=== PATIENT | female | born 1940 | race Caucasian/White ===

== ENCOUNTER 2019-04-15 12:19 | Emergency (ER) | payer MEDICARE, OTHER ==
[~2019-04-15] VITALS: Ht 157.5 cm; Wt 74.0 kg
[~2019-04-15 12:19] MED LIST: ALPR-624 PO; ASPI-1009 PO; CITA10TA9; DICY10CA88 PO; PROM25TA14 PO; SULF-117 PO; TRAM50TA2 PO; ZOF4T PO
[2019-04-15 13:05] LABS: BASOPHILS % (AUTO) 0.8 % (0-1); EOSINOPHILS % (AUTO) 0.4 % (0-6); HEMATOCRIT 36.3 % (35.0-45.0); HEMOGLOBIN 12.1 g/dl (12.0-16.0); LYMPHOCYTES # (AUTO) 0.9 X10'3 (1.1-4.8); LYMPHOCYTES % (AUTO) 17.7 % (21-51); MEAN CORPUSCULAR HEMOGLOBIN 29.3 PG (27.0-31.0); MEAN CORPUSCULAR HGB CONC 33.3 g/dL (33.0-36.5); MEAN CORPUSCULAR VOLUME 87.9 FL (78-98); MEAN PLATELET VOLUME 7.2 FL (7.4-10.4); MONOCYTES # (AUTO) 0.2 X10'3 (0-0.9); MONOCYTES % (AUTO) 4.5 % (2-12); NEUTROPHILS # (AUTO) 3.7 X10'3 (1.8-7.7); NEUTROPHILS % (AUTO) 76.6 % (42-75); PLATELET COUNT 258 X10'3 (140-440); RED BLOOD COUNT 4.13 X10'6 (4.20-5.60); RED CELL DISTRIBUTION WIDTH 14.4 % (11.5-14.5); WHITE BLOOD COUNT 4.8 X10'3 (4.5-11.0)
[2019-04-15 13:16] LABS: PARTIAL THROMBOPLASTIN TIME 26 SECONDS (22-32)
[2019-04-15 13:29] LABS: ALANINE AMINOTRANSFERASE 17 U/L (12-78); ALBUMIN 3.8 G/DL (3.4-5.0); ALBUMIN/GLOBULIN RATIO 1.1 (1.1-1.5); ALKALINE PHOSPHATASE 93 IU/L (46-116); ANION GAP 10 (8-16); ASPARTATE AMINO TRANSFERASE 16 U/L (10-37); BILIRUBIN,TOTAL 0.6 MG/DL (0.1-1.0); BLOOD UREA NITROGEN 9 MG/DL (7-18); BUN/CREATININE RATIO 9.3 (6.6-38.0); CALCIUM 8.6 MG/DL (8.5-10.1); CHLORIDE 109 MMOL/L (99-107); CREATININE 0.97 MG/DL (0.40-0.90); GLUCOSE 118 MG/DL (70-104); LACTATE DEHYDROGENASE 172 U/L (81-234); MAGNESIUM 1.7 MG/DL (1.5-2.4); POTASSIUM 3.5 MMOL/L (3.5-5.1); SODIUM 143 MMOL/L (135-145); TOTAL CARBON DIOXIDE 23.7 MMOL/L (24-32); TOTAL PROTEIN 7.2 G/DL (6.4-8.2); eGFR 55 ML/MIN
[2019-04-15 13:30] LABS: C-REACTIVE PROTEIN < 0.05 MG/DL (0.0-0.5)
[2019-04-15] MEDS ORDERED: BENZ-16 PO (13:39)
[2019-04-15] MEDS ORDERED: AZIT-63 PO (13:39)
[2019-04-15 13:49] VITALS: BP 152/78
--- NOTE | 2019-04-15 13:49 | NUR ---
CONFIRMED WITH DR PATTERSON PT CAN BE DISCHARGE NO NEED TO OBTAIN FLU SWAB.
--- NOTE | 2019-04-15 13:52 | NUR ---
CALLED [phone] LEFT MESSAGE FOR PT TO BE TRANSPORTED HOME
== END 2019-04-15 13:56 | disposition home or self-care (01) ==
LOC: ER 12:20
DX: J21.9 Acute bronchiolitis, unspecified (principal); Z98.890 Other specified postprocedural states; Z88.5 Allergy status to narcotic agent; Z79.82 Long term (current) use of aspirin; Z79.2 Long term (current) use of antibiotics; Z79.899 Other long term (current) drug therapy
CPT/HCPCS: 36415; 71045; 80053; 83605; 83615; 83735; 84145; 85025; 85610; 85730; 86140; 87040; 93005; 99285

== ENCOUNTER 2019-06-29 15:18 | Inpatient (IN) | payer MEDICARE, OTHER ==
[~2019-06-29] VITALS: Ht 154.9 cm; Wt 72.0 kg
--- NOTE | 2019-06-29 15:46 | NUR ---
Stroke alert level [address] Marinelli.
--- NOTE | 2019-06-29 16:21 | NUR ---
patient back from ct.
[2019-06-29 16:26] LABS: CLARITY,URINE CLEAR (Clear); COLOR,URINE YELLOW (Yellow); GLUCOSE, URINE NEGATIVE (Neg); KETONES,URINE NEGATIVE (Neg); LEUKOCYTE ESTERASE ,URINE NEGATIVE (Neg); NITRITES, URINE NEGATIVE (Neg); OCCULT BLOOD,URINE NEGATIVE (Neg); PROTEIN,URINE NEGATIVE (Neg); UROBILINOGEN,URINE 0.2 E.U/dL (0.2-1.0)
[2019-06-29 16:27] LABS: BASOPHILS # (AUTO) 0.1 X10'3 (0-0.2); EOSINOPHILS % (AUTO) 2.2 % (0-6); LYMPHOCYTES # (AUTO) 1.2 X10'3 (1.1-4.8); MEAN PLATELET VOLUME 6.9 FL (7.4-10.4)
[2019-06-29 16:27] LABS: UA COLLECTION TYPE STRAIGHT CATH
[2019-06-29 16:29] LABS: BASOPHILS % (AUTO) 1.4 % (0-1); EOSINOPHILS # (AUTO) 0.1 X10'3 (0-0.9); HEMATOCRIT 37.9 % (35.0-45.0); HEMOGLOBIN 12.5 g/dl (12.0-16.0); LYMPHOCYTES % (AUTO) 17.6 % (21-51); MEAN CORPUSCULAR VOLUME 87.8 FL (78-98); MONOCYTES # (AUTO) 0.4 X10'3 (0-0.9); MONOCYTES % (AUTO) 6.2 % (2-12); NEUTROPHILS # (AUTO) 4.9 X10'3 (1.8-7.7); NEUTROPHILS % (AUTO) 72.6 % (42-75); PLATELET COUNT 325 X10'3 (140-440); RED BLOOD COUNT 4.32 X10'6 (4.20-5.60); RED CELL DISTRIBUTION WIDTH 15.1 % (11.5-14.5); WHITE BLOOD COUNT 6.7 X10'3 (4.5-11.0)
[2019-06-29 16:33] LABS: PARTIAL THROMBOPLASTIN TIME 25 SECONDS (22-32)
[2019-06-29 16:34] LABS: ALANINE AMINOTRANSFERASE 15 U/L (12-78); ALBUMIN 3.7 G/DL (3.4-5.0); ALBUMIN/GLOBULIN RATIO 1.1 (1.1-1.5); ALKALINE PHOSPHATASE 102 IU/L (46-116); ANION GAP 11 (8-16); ASPARTATE AMINO TRANSFERASE 16 U/L (10-37); BILIRUBIN,TOTAL 0.7 MG/DL (0.1-1.0); BLOOD UREA NITROGEN 15 MG/DL (7-18); BUN/CREATININE RATIO 14.3 (6.6-38.0); CALCIUM 9.1 MG/DL (8.5-10.1); CHLORIDE 107 MMOL/L (99-107); CREATININE 1.05 MG/DL (0.40-0.90); GLUCOSE 93 MG/DL (70-104); POTASSIUM 3.7 MMOL/L (3.5-5.1); SODIUM 145 MMOL/L (135-145); TOTAL CARBON DIOXIDE 26.8 MMOL/L (24-32); TOTAL PROTEIN 7.2 G/DL (6.4-8.2); eGFR 50 ML/MIN
--- NOTE | 2019-06-29 16:38 | NUR ---
Called tele Neuro/spoke with Salvatore.
--- NOTE | 2019-06-29 16:43 | NUR ---
Awaiting tele neuro consult,monitor at bedside.
[2019-06-29] MEDS ORDERED: potassium Cl 20 mEq SR tablet PO PRN (17:15)
[2019-06-29] MEDS ORDERED: potassium CL 10mEq/100ml bag 100 ML IV PRN ×2 (17:15)
[2019-06-29] MEDS ORDERED: acetaminophen 325mg tablet PO PRN ×2 (17:15)
[2019-06-29] MEDS ORDERED: magnesium Cl slow-release 64mg tablet PO PRN (17:15)
[2019-06-29] MEDS ORDERED: magnesium 2GM in 50ml NS 50 ML IV PRN (17:15)
[2019-06-29] MEDS ORDERED: ondansetron/PF 4mg/2ml inj IV PRN (17:15)
[2019-06-29] MEDS ORDERED: magnesium 4gm in 100ml NS 100 ML IV PRN (17:15)
--- NOTE | 2019-06-29 17:29 | NUR ---
DR RUST AT BEDSIDE
--- NOTE | 2019-06-29 17:53 | NUR ---
Unable to do swallow eval,patient to MRI.
[2019-06-29 18:00] VITALS: BP 154/75
--- NOTE | 2019-06-29 18:39 | NUR ---
Pt returned to room after MRI.
[2019-06-29] MEDS: normal saline 1000ml 1,000 ML IV SCH (18:55)
[2019-06-29 19:15] VITALS: BP 154/75
--- NOTE | 2019-06-29 19:30 | NUR ---
received report from JAVIER Lujan in ER. Patient brought to room via gurney and she was able to ambulate to the bed. Patient stated that she no longer had any more numbness or tingling in her arm, that all symptoms were resolved. patient given POC, call light and VS taken.
[2019-06-29] MEDS: K and/or MAG REPLACEMENT MC SCH (20:00)
[2019-06-29] MEDS: docusate sod 100mg capsule PO SCH (20:00)
[2019-06-29] MEDS ORDERED: ATOR20TA PO (20:56)
[2019-06-29] MEDS ORDERED: ESCI20TA PO (20:56)
[2019-06-29] MEDS ORDERED: IBUP-1984 PO (20:56)
[2019-06-29] MEDS ORDERED: RABE20TA18 PO (20:56)
[2019-06-29] MEDS ORDERED: AMLO5TAB PO (20:56)
[2019-06-29] MEDS ORDERED: temazepam 15mg capsule PO PRN (21:00)
[2019-06-29] MEDS: clopidogrel 75mg tablet PO SCH (21:25)
[2019-06-29] MEDS: ALPRAZolam 0.25mg tablet PO PRN (21:26)
[2019-06-29] MEDS: heparin, porcine 5000 units/ml vial SQ SCH (21:26)
[2019-06-30] VITALS: BP 116/56
--- NOTE | 2019-06-30 00:06 | NUR ---
reviewed and agree with SRN assessment
[2019-06-30 04:00] VITALS: BP 125/57
--- NOTE | 2019-06-30 05:58 | NUR ---
Problems reprioritized. Patient report given, questions answered & plan of care reviewed with Ruby HERRERA .
[2019-06-30 06:02] LABS: BASOPHILS # (AUTO) 0.1 X10'3 (0-0.2); BASOPHILS % (AUTO) 1.3 % (0-1); EOSINOPHILS # (AUTO) 0.2 X10'3 (0-0.9); HEMATOCRIT 31.5 % (35.0-45.0); HEMOGLOBIN 10.5 g/dl (12.0-16.0); LYMPHOCYTES # (AUTO) 1.3 X10'3 (1.1-4.8); LYMPHOCYTES % (AUTO) 22.1 % (21-51); MEAN CORPUSCULAR HEMOGLOBIN 28.8 PG (27.0-31.0); MEAN CORPUSCULAR HGB CONC 33.2 g/dL (33.0-36.5); MEAN CORPUSCULAR VOLUME 86.7 FL (78-98); MEAN PLATELET VOLUME 7.1 FL (7.4-10.4); MONOCYTES # (AUTO) 0.5 X10'3 (0-0.9); MONOCYTES % (AUTO) 8.9 % (2-12); NEUTROPHILS # (AUTO) 3.7 X10'3 (1.8-7.7); NEUTROPHILS % (AUTO) 63.7 % (42-75); PLATELET COUNT 269 X10'3 (140-440); RED BLOOD COUNT 3.63 X10'6 (4.20-5.60); RED CELL DISTRIBUTION WIDTH 14.9 % (11.5-14.5); WHITE BLOOD COUNT 5.8 X10'3 (4.5-11.0)
--- NOTE | 2019-06-30 06:04 | NUR ---
RECEIVED REPORT FROM JAVIER JAY
--- NOTE | 2019-06-30 06:05 | NUR ---
Patient in room [facility]. I have received report from MISTY HERRERA and had the opportunity to ask questions and assume patient care.
[2019-06-30 06:10] LABS: ALANINE AMINOTRANSFERASE 11 U/L (12-78); ALBUMIN 3.1 G/DL (3.4-5.0); ALKALINE PHOSPHATASE 84 IU/L (46-116); ANION GAP 6 (8-16); ASPARTATE AMINO TRANSFERASE 15 U/L (10-37); BILIRUBIN,TOTAL 0.7 MG/DL (0.1-1.0); BLOOD UREA NITROGEN 17 MG/DL (7-18); BUN/CREATININE RATIO 15.3 (6.6-38.0); CALCIUM 9.1 MG/DL (8.5-10.1); CHLORIDE 107 MMOL/L (99-107); CHOL/HDL RATIO 3.8 (0.00-4.99); CHOLESTEROL 149 MG/DL (0-200); CREATININE 1.11 MG/DL (0.40-0.90); GLUCOSE 120 MG/DL (70-104); HDL CHOLESTEROL 39 MG/DL (35-60); LDL CHOLESTEROL 84 MG/DL (50-100); MAGNESIUM 1.8 MG/DL (1.5-2.4); POTASSIUM 3.3 MMOL/L (3.5-5.1); SODIUM 139 MMOL/L (135-145); TOTAL CARBON DIOXIDE 26.5 MMOL/L (24-32); TOTAL PROTEIN 6.1 G/DL (6.4-8.2); TRIGLYCERIDES 149 MG/DL (20-135); eGFR 47 ML/MIN
[2019-06-30 07:00] VITALS: BP 137/68
[2019-06-30] MEDS: K and/or MAG REPLACEMENT MC SCH ×2 (07:07→20:00)
[2019-06-30] MEDS: citalopram 20mg tablet PO SCH (07:11)
[2019-06-30] MEDS: aspirin 81mg tablet.DR PO SCH (07:16)
[2019-06-30] MEDS: clopidogrel 75mg tablet PO SCH (07:16)
[2019-06-30] MEDS: docusate sod 100mg capsule PO SCH ×2 (07:20→19:11)
[2019-06-30] MEDS: potassium Cl 20 mEq SR tablet PO PRN ×3 (07:20→19:11)
[2019-06-30] MEDS: heparin, porcine 5000 units/ml vial SQ SCH ×2 (07:25→19:11)
[2019-06-30] MEDS: normal saline 1000ml 1,000 ML IV SCH ×2 (07:27→21:51)
--- NOTE | 2019-06-30 07:33 | NUR ---
COMPUTER SCANNER NOT SCANNING MEDICATION INTO 5minutes, CHECKED ALL MEDS PRIOR TO ADMIN, CONTINUE TO MONITOR
[2019-06-30 08:00] VITALS: BP 138/68
[2019-06-30] MEDS ORDERED: FLU VACC QS2019-20 36MOS UP/PF 60 MCG/0.5 ML SYRINGE IMVAC ONE (10:00)
[2019-06-30 11:00] VITALS: BP 141/64
[2019-06-30] MEDS ORDERED: ASPI81TA30 PO (12:07)
[2019-06-30] MEDS ORDERED: CLOP75TA15 PO (12:08)
[2019-06-30] MEDS: atorvastatin 20mg tablet PO SCH (12:50)
[2019-06-30] MEDS: ALPRAZolam 0.25mg tablet PO PRN ×2 (13:02→19:11)
--- NOTE | 2019-06-30 15:32 | NUR ---
SPOKE W/HOSPITALIST THIS MORNING ABOUT PT GETTING D/C IN A TIMELY MANNER WHEN ALL TESTS ARE RESULTED BECAUSE OF HER RIDE LIVING FAR AWAY FROM HOSPITAL, THEREFORE HOSPITALIST PLACED D/C ORDER, ALL TESTS ARE BACK AND NURSING STAFF STARTED THE D/C PROCESS OF D/C IV AND TELE MONITOR AND DRESSING PT HOSPITALIST CALLED BACK AFTER THE THIRD TIME OF NURSING STAFF PAGING AND SAID EVEN THOUGH NURSING STAFF HAD PRINTED OUT PT VASCULAR STUDY THAT IS NEGATIVE THAT PT HAS TO WAIT TIL OFFICIAL REPORT TO SHOW UP IN COMPUTER, CONTINUE TO EDUCATE AND MONITOR
--- NOTE | 2019-06-30 18:29 | NUR ---
SENT A PAGE TO HOSPITALIST LETTING HER KNOW THAT OFFICIAL COPY OF PT VASCULAR STUDY IS BACK, WHEN NURSING STAFF TOLD PT, PT TOLD ME THAT SHE HAD ALREADY CALLED DAUGHTER TO GO HOME AND NOT PICK HER (PT) UP, OF NOW PT IS STILL IN HOSPITAL
--- NOTE | 2019-06-30 18:30 | NUR ---
Patient in room [facility]. I have received report from Ruby HERRERA and had the opportunity to ask questions and assume patient care.
--- NOTE | 2019-06-30 18:31 | NUR ---
GAVE REPORT TO JAVIER TSANG
[2019-06-30 20:00] VITALS: BP 184/76
[2019-07-01] VITALS: BP 136/56
[2019-07-01 05:51] LABS: BASOPHILS # (AUTO) 0.1 X10'3 (0-0.2); BASOPHILS % (AUTO) 1.8 % (0-1); EOSINOPHILS # (AUTO) 0.2 X10'3 (0-0.9); EOSINOPHILS % (AUTO) 4.5 % (0-6); HEMATOCRIT 32.6 % (35.0-45.0); HEMOGLOBIN 10.7 g/dl (12.0-16.0); LYMPHOCYTES # (AUTO) 1.3 X10'3 (1.1-4.8); LYMPHOCYTES % (AUTO) 25.5 % (21-51); MEAN CORPUSCULAR HEMOGLOBIN 28.7 PG (27.0-31.0); MEAN CORPUSCULAR HGB CONC 32.8 g/dL (33.0-36.5); MEAN CORPUSCULAR VOLUME 87.6 FL (78-98); MONOCYTES # (AUTO) 0.4 X10'3 (0-0.9); NEUTROPHILS # (AUTO) 3.1 X10'3 (1.8-7.7); NEUTROPHILS % (AUTO) 60.2 % (42-75); PLATELET COUNT 276 X10'3 (140-440); RED BLOOD COUNT 3.72 X10'6 (4.20-5.60); RED CELL DISTRIBUTION WIDTH 14.9 % (11.5-14.5); WHITE BLOOD COUNT 5.2 X10'3 (4.5-11.0)
[2019-07-01 06:12] LABS: ALANINE AMINOTRANSFERASE 13 U/L (12-78); ALBUMIN 3.3 G/DL (3.4-5.0); ALBUMIN/GLOBULIN RATIO 1.1 (1.1-1.5); ALKALINE PHOSPHATASE 85 IU/L (46-116); ANION GAP 9 (8-16); ASPARTATE AMINO TRANSFERASE 16 U/L (10-37); BILIRUBIN,TOTAL 0.6 MG/DL (0.1-1.0); BLOOD UREA NITROGEN 11 MG/DL (7-18); BUN/CREATININE RATIO 11.1 (6.6-38.0); CALCIUM 8.8 MG/DL (8.5-10.1); CHLORIDE 109 MMOL/L (99-107); CREATININE 0.99 MG/DL (0.40-0.90); GLUCOSE 109 MG/DL (70-104); MAGNESIUM 1.8 MG/DL (1.5-2.4); POTASSIUM 4.1 MMOL/L (3.5-5.1); SODIUM 144 MMOL/L (135-145); TOTAL CARBON DIOXIDE 26.4 MMOL/L (24-32); TOTAL PROTEIN 6.3 G/DL (6.4-8.2); eGFR 54 ML/MIN
--- NOTE | 2019-07-01 06:15 | NUR ---
Problems reprioritized. Patient report given, questions answered & plan of care reviewed with Romelia HERRERA.
[2019-07-01] MEDS: K and/or MAG REPLACEMENT MC SCH (08:00)
[2019-07-01] MEDS: heparin, porcine 5000 units/ml vial SQ SCH (08:00)
[2019-07-01] MEDS: docusate sod 100mg capsule PO SCH (08:06)
[2019-07-01] MEDS: aspirin 81mg tablet.DR PO SCH (08:06)
[2019-07-01] MEDS: atorvastatin 20mg tablet PO SCH (08:06)
[2019-07-01] MEDS: citalopram 20mg tablet PO SCH (08:06)
[2019-07-01] MEDS: clopidogrel 75mg tablet PO SCH (08:07)
[2019-07-01 08:16] VITALS: BP 186/82
--- NOTE | 2019-07-01 10:59 | NUR ---
Dr. Cain okay with using DC order from yesterday. She rounded on patient, all questions answered.
[2019-07-01 11:00] VITALS: BP 163/86
--- NOTE | 2019-07-01 12:00 | NUR ---
Student documentation: I have reviewed and agree with all interventions, assessments performed and documented by SN Maryellen. Student Medication Administration: For this medication-pass time frame, all medication were reviewed, dispensed, administered and documented per hospital policy by SN Mrayellen.
--- NOTE | 2019-07-01 12:04 | NUR ---
Patient stable and appropriate for discharge home with granddaughter. IV removed, all belongings taken from room. New prescriptions sent to preferred pharmacy. Patient aware of times of next doses on medications. All stroke education given and reviewed with patient along with discharge instructions. Patient verbalizes understanding and all questions answered. MD reviewed all completed studies with patient during rounding.
--- NOTE | 2019-07-03 14:57 | NUR ---
Case Management DC follow up: Spoke to pt via telephone. s/p: Numbness L arm, possible TIA. Reports: "doing well, no numbness on either side of body" Reports a little tingling above R wrist 07/02/19 in the AM, resolved quickly. Denies s/s stroke FAST. Denies: SOB, resp distress, acute/persistent CP, WILLIS, blurry vision, N/V, emergent general pain, abd tenderness or distention, vertigo, syncope, fever, unexplained bruising, bleeding. Verbalizes understanding of s/s that would warrant 9-/ER visit for further evaluation. Verbalizes understanding of current/new Rx asa & plavix 3 weeks, then discontinue asa. Understands why prescribed; taking as ordered, no ase noted r/t polypharmacy. Acknowledges need to follow-up/keep appts w/PCP Dr Nesbitt 07/04/19, pt currently writing down questions r/t test results, any symptoms since DC and Rx orders to ask doctor at appt. Questions answered, needs met at DC. No further questions at this time.
== END 2019-07-01 12:00 | disposition home or self-care (01) | DRG 66 ==
LOC: ER 15:18 → ED HOLD 17:15 → SUR 3N 19:15
PROVIDERS: ADMIT Internal Medicine; ATTEND Internal Medicine
DX: I63.9 Cerebral infarction, unspecified (principal); N18.3 Chronic kidney disease, stage 3 (moderate); F41.9 Anxiety disorder, unspecified; M54.2 Cervicalgia; G89.29 Other chronic pain; K58.9 Irritable bowel syndrome, unspecified; M19.90 Unspecified osteoarthritis, unspecified site; Z79.82 Long term (current) use of aspirin; Z79.02 Long term (current) use of antithrombotics/antiplatelets; Z28.21 Immunization not carried out because of patient refusal; Z88.5 Allergy status to narcotic agent; Z79.899 Other long term (current) drug therapy
CPT/HCPCS: 36415; 70450; 70544; 70551; 71045; 80053; 80061; 81003; 83036; 83735; 85025; 85610; 85730; 87081; 92508; 92616; 93005; 93306; 93880; 97110; 97116; 97161; 97530; 99285; G0378; J1644; J7030; Q2037

== ENCOUNTER 2019-12-19 09:41 | Outpatient (CLI) | payer MEDICARE, OTHER ==
[2019-12-19] VITALS (22 sets, daily range): BP systolic 120–167; BP diastolic 67–112
[~2019-12-19 09:41] MED LIST changes: -ASPI-1009 PO; +ATOR20TA PO; -CITA10TA9; +CLOP75TA15 PO; -DICY10CA88 PO; +ESCI20TA PO; -PROM25TA14 PO; +RABE20TA18 PO; -SULF-117 PO; -TRAM50TA2 PO; -ZOF4T PO
== END 2019-12-19 23:59 | disposition home or self-care (01) ==
LOC: CARD DIAG 09:41
PROVIDERS: ATTEND Internal Medicine Cardiovascular Disease
DX: R42 Dizziness and giddiness (principal)
CPT/HCPCS: 93660

== ENCOUNTER 2020-04-17 13:11 | Emergency (ER) | payer MEDICARE, OTHER ==
[~2020-04-17] VITALS: Ht 154.9 cm; Wt 72.7 kg
[2020-04-17 13:53] LABS: BASOPHILS % (AUTO) 0.8 % (0-1); EOSINOPHILS # (AUTO) 0.2 X10'3 (0-0.9); EOSINOPHILS % (AUTO) 4.5 % (0-6); HEMATOCRIT 36.5 % (35.0-45.0); HEMOGLOBIN 12.1 g/dl (12.0-16.0); LYMPHOCYTES # (AUTO) 1.1 X10'3 (1.1-4.8); LYMPHOCYTES % (AUTO) 21.6 % (21-51); MEAN CORPUSCULAR HEMOGLOBIN 29.9 PG (27.0-31.0); MEAN CORPUSCULAR HGB CONC 33.1 g/dL (33.0-36.5); MEAN CORPUSCULAR VOLUME 90.3 FL (78-98); MEAN PLATELET VOLUME 7.1 FL (7.4-10.4); MONOCYTES # (AUTO) 0.4 X10'3 (0-0.9); MONOCYTES % (AUTO) 8.7 % (2-12); NEUTROPHILS # (AUTO) 3.3 X10'3 (1.8-7.7); NEUTROPHILS % (AUTO) 64.4 % (42-75); PLATELET COUNT 287 X10'3 (140-440); RED BLOOD COUNT 4.04 X10'6 (4.20-5.60); RED CELL DISTRIBUTION WIDTH 14.7 % (11.5-14.5); WHITE BLOOD COUNT 5.1 X10'3 (4.5-11.0)
[2020-04-17 14:06] LABS: ALANINE AMINOTRANSFERASE 23 U/L (12-78); ALBUMIN 3.7 G/DL (3.4-5.0); ALBUMIN/GLOBULIN RATIO 0.9 (1.1-1.5); ALKALINE PHOSPHATASE 130 IU/L (46-116); ANION GAP 11 (8-16); ASPARTATE AMINO TRANSFERASE 18 U/L (10-37); BILIRUBIN,TOTAL 0.6 MG/DL (0.1-1.0); BLOOD UREA NITROGEN 13 MG/DL (7-18); BUN/CREATININE RATIO 12.7 (6.6-38.0); CALCIUM 9.4 MG/DL (8.5-10.1); CHLORIDE 103 MMOL/L (99-107); CREATININE 1.02 MG/DL (0.40-0.90); GLUCOSE 121 MG/DL (70-104); POTASSIUM 3.9 MMOL/L (3.5-5.1); SODIUM 138 MMOL/L (135-145); TOTAL CARBON DIOXIDE 23.8 MMOL/L (24-32); TOTAL PROTEIN 7.8 G/DL (6.4-8.2); eGFR 52 ML/MIN
[2020-04-17] MEDS ORDERED: ondansetron 4mg rapidly disintigrating tab PO ONE (14:25)
[2020-04-17 14:48] LABS: CLARITY,URINE CLOUDY (Clear); COLOR,URINE YELLOW (Yellow); GLUCOSE, URINE NEGATIVE (Neg); KETONES,URINE NEGATIVE (Neg); LEUKOCYTE ESTERASE ,URINE MODERATE (Neg); NITRITES, URINE NEGATIVE (Neg); OCCULT BLOOD,URINE TRACE-INTACT (Neg); PROTEIN,URINE NEGATIVE (Neg); UROBILINOGEN,URINE 0.2 E.U/dL (0.2-1.0)
[2020-04-17 14:49] LABS: UA COLLECTION TYPE CLN CATCH MIDSTREAM
[2020-04-17 14:56] LABS: RBC,URINE 0-4 /HPF (0-2)
[2020-04-17 14:57] LABS: SQUAMOUS EPITHELIAL CELL,UR MANY /LPF (FEW)
[2020-04-17 15:00] LABS: TRANSITIONAL EPI CELLS,URINE FEW /HPF
[2020-04-17 15:01] LABS: BACTERIA,URINE FEW /HPF (Neg); WBC CLUMPS,URINE FEW /HPF (NEGATIVE)
[2020-04-17] MEDS ORDERED: ciprofloxacin 250mg tablet PO ONE (15:15)
[2020-04-17] MEDS ORDERED: CIPR-202 PO (15:18)
[2020-04-17] MEDS ORDERED: ONDA4TAB6 PO (15:24)
[2020-04-17 15:42] VITALS: BP 122/75
== END 2020-04-17 15:45 | disposition home or self-care (01) ==
LOC: ER 13:11
DX: N39.0 Urinary tract infection, site not specified (principal); R10.9 Unspecified abdominal pain; R11.0 Nausea; Z98.890 Other specified postprocedural states; Z88.5 Allergy status to narcotic agent; Z79.899 Other long term (current) drug therapy
CPT/HCPCS: 36415; 74176; 80053; 81001; 85025; 99284

== ENCOUNTER 2020-04-22 19:17 | Emergency (ER) | payer MEDICARE, OTHER ==
[~2020-04-22] VITALS: Ht 157.5 cm; Wt 72.7 kg
[~2020-04-22 19:17] MED LIST changes: +CIPR-202 PO; +ONDA4TAB6 PO
[2020-04-22 21:07] LABS: CLARITY,URINE CLEAR (Clear); COLOR,URINE YELLOW (Yellow); GLUCOSE, URINE NEGATIVE (Neg); KETONES,URINE NEGATIVE (Neg); LEUKOCYTE ESTERASE ,URINE SMALL (Neg); NITRITES, URINE NEGATIVE (Neg); OCCULT BLOOD,URINE TRACE-INTACT (Neg); PH,URINE 5.5 (4.8-8.0); PROTEIN,URINE NEGATIVE (Neg); UROBILINOGEN,URINE 0.2 E.U/dL (0.2-1.0)
[2020-04-22 21:10] LABS: URINE HCG NEGATIVE (NEG)
[2020-04-22 21:17] LABS: UA COLLECTION TYPE OTHER
[2020-04-22 21:20] LABS: BACTERIA,URINE FEW /HPF (Neg); RBC,URINE 0-2 /HPF (0-2); SQUAMOUS EPITHELIAL CELL,UR MODERATE /LPF (FEW)
[2020-04-22 21:21] LABS: TRANSITIONAL EPI CELLS,URINE FEW /HPF
[2020-04-22 21:52] LABS: BASOPHILS # (AUTO) 0.1 X10'3 (0-0.2); BASOPHILS % (AUTO) 0.9 % (0-1); EOSINOPHILS # (AUTO) 0.2 X10'3 (0-0.9); EOSINOPHILS % (AUTO) 2.3 % (0-6); HEMATOCRIT 36.7 % (35.0-45.0); HEMOGLOBIN 12.4 g/dl (12.0-16.0); LYMPHOCYTES # (AUTO) 1.2 X10'3 (1.1-4.8); MEAN CORPUSCULAR HEMOGLOBIN 30.5 PG (27.0-31.0); MEAN CORPUSCULAR HGB CONC 33.8 g/dL (33.0-36.5); MEAN CORPUSCULAR VOLUME 90.1 FL (78-98); MEAN PLATELET VOLUME 7.1 FL (7.4-10.4); MONOCYTES # (AUTO) 0.6 X10'3 (0-0.9); MONOCYTES % (AUTO) 8.1 % (2-12); NEUTROPHILS # (AUTO) 5.8 X10'3 (1.8-7.7); NEUTROPHILS % (AUTO) 73.7 % (42-75); PLATELET COUNT 277 X10'3 (140-440); RED BLOOD COUNT 4.07 X10'6 (4.20-5.60); RED CELL DISTRIBUTION WIDTH 14.6 % (11.5-14.5); WHITE BLOOD COUNT 7.9 X10'3 (4.5-11.0)
[2020-04-22 22:04] LABS: ALANINE AMINOTRANSFERASE 23 U/L (12-78); ALKALINE PHOSPHATASE 134 IU/L (46-116); ASPARTATE AMINO TRANSFERASE 23 U/L (10-37); BILIRUBIN,TOTAL 0.6 MG/DL (0.1-1.0); BLOOD UREA NITROGEN 11 MG/DL (7-18); BUN/CREATININE RATIO 10.8 (6.6-38.0); CALCIUM 9.7 MG/DL (8.5-10.1); CREATININE 1.02 MG/DL (0.40-0.90); GLUCOSE 121 MG/DL (70-104); LIPASE 95 U/L (73-393); TOTAL CARBON DIOXIDE 24.7 MMOL/L (24-32); TOTAL PROTEIN 8.2 G/DL (6.4-8.2); eGFR 52 ML/MIN
[2020-04-22 22:26] LABS: ANION GAP 12 (8-16); CHLORIDE 97 MMOL/L (99-107); SODIUM 134 MMOL/L (135-145)
[2020-04-22] MEDS ORDERED: bisacodyl 10mg suppository rectal RC ONE (22:55)
--- NOTE | 2020-04-22 23:01 | NUR ---
BLANKA [phone] WANTS AN UPDATE. TOLD HER NURSE WAS IN A ROOM AND TO CALL BACK LATER.
[2020-04-22 23:15] VITALS: BP 191/92
--- NOTE | 2020-04-22 23:30 | NUR ---
PT UP TO BEDSIDE COMMODE. GIVEN CALL LIGHT AND VERBALZED INSTRUCTIONS TO USE WHEN READY TO GET UP
[2020-04-23] MEDS ORDERED: normal saline 1000ML IV soln IVB ONE (00:15)
--- NOTE | 2020-04-23 00:33 | NUR ---
pt called me to BS and asked me to ask the MD if she could get medicine for anxiousness, she said she is shaking like a leaf. Dr. Billingsley made aware.
[2020-04-23] MEDS ORDERED: LORazepam 2 mg/ml vial IV ONE (01:15)
--- NOTE | 2020-04-23 02:28 | NUR ---
assisted dr moran with manual disimpaction of pt. edwardo moran retrieved multiple hard stool as well as some soft stool at the end of the procedure. pt reports some abd relief and less nausea. is now sitting on the commode. some hemmorhoid bleeding noted.
--- NOTE | 2020-04-23 02:29 | NUR ---
spoke with daughter claude with pt permission regarding pt status that she should be discharged soon and had success removing fecal matter.
[2020-04-23] MEDS ORDERED: magnesium citrate 296ml oral solution PO ONE (02:40)
== END 2020-04-23 03:18 | disposition home or self-care (01) ==
LOC: ER 19:18
DX: K56.41 Fecal impaction (principal); N30.90 Cystitis, unspecified without hematuria; Z87.442 Personal history of urinary calculi; Z98.890 Other specified postprocedural states; Z88.8 Allergy status to other drugs, medicaments and biological substances; Z79.2 Long term (current) use of antibiotics; Z79.899 Other long term (current) drug therapy
CPT/HCPCS: 36415; 74018; 80053; 81001; 81025; 83690; 85025; 87088; 93005; 96361; 96374; 99285; J2060; J7030; 96375

== ENCOUNTER 2020-04-27 15:14 | Emergency (ER) | payer MEDICARE, OTHER ==
[~2020-04-27] VITALS: Ht 154.9 cm; Wt 72.2 kg
[2020-04-27] MEDS ORDERED: normal saline 1000ml 1,000 ML IV ONE (16:20)
[2020-04-27] MEDS ORDERED: ondansetron/PF 4mg/2ml inj IV ONE (16:20)
[2020-04-27 16:21] LABS: HEMOGLOBIN 11.9 g/dl (12.0-16.0); MEAN CORPUSCULAR HEMOGLOBIN 30.2 PG (27.0-31.0); MEAN CORPUSCULAR HGB CONC 33.3 g/dL (33.0-36.5); NEUTROPHILS # (AUTO) 6.1 X10'3 (1.8-7.7)
[2020-04-27 16:23] LABS: BASOPHILS # (AUTO) 0.1 X10'3 (0-0.2); BASOPHILS % (AUTO) 0.8 % (0-1); EOSINOPHILS # (AUTO) 0.1 X10'3 (0-0.9); EOSINOPHILS % (AUTO) 1.5 % (0-6); HEMATOCRIT 35.7 % (35.0-45.0); LYMPHOCYTES % (AUTO) 12.4 % (21-51); MEAN CORPUSCULAR VOLUME 90.7 FL (78-98); MEAN PLATELET VOLUME 7.2 FL (7.4-10.4); MONOCYTES # (AUTO) 0.6 X10'3 (0-0.9); MONOCYTES % (AUTO) 7.3 % (2-12); PLATELET COUNT 277 X10'3 (140-440); RED BLOOD COUNT 3.94 X10'6 (4.20-5.60); RED CELL DISTRIBUTION WIDTH 14.8 % (11.5-14.5); WHITE BLOOD COUNT 7.9 X10'3 (4.5-11.0)
[2020-04-27 16:27] LABS: ALANINE AMINOTRANSFERASE 32 U/L (12-78); ALKALINE PHOSPHATASE 141 IU/L (46-116); ANION GAP 13 (8-16); ASPARTATE AMINO TRANSFERASE 23 U/L (10-37); BILIRUBIN,TOTAL 0.7 MG/DL (0.1-1.0); BLOOD UREA NITROGEN 9 MG/DL (7-18); BUN/CREATININE RATIO 9.3 (6.6-38.0); CALCIUM 9.8 MG/DL (8.5-10.1); CHLORIDE 102 MMOL/L (99-107); CREATININE 0.97 MG/DL (0.40-0.90); GLUCOSE 131 MG/DL (70-104); POTASSIUM 4.1 MMOL/L (3.5-5.1); SODIUM 139 MMOL/L (135-145); TOTAL CARBON DIOXIDE 24.3 MMOL/L (24-32); eGFR 55 ML/MIN
[2020-04-27] MEDS ORDERED: iohexol 350MG/ML 100ml bottle IV ONE (16:36)
[2020-04-27 16:37] LABS: MAGNESIUM 2.2 MG/DL (1.5-2.4); PARTIAL THROMBOPLASTIN TIME 26 SECONDS (22-32); TROPONIN I < 0.04 NG/ML (0.0-0.05)
--- NOTE | 2020-04-27 17:01 | NUR ---
To CT, [facility] 15
[2020-04-27 17:15] LABS: CLARITY,URINE CLEAR (Clear); COLOR,URINE STRAW (Yellow); GLUCOSE, URINE NEGATIVE (Neg); KETONES,URINE NEGATIVE (Neg); LEUKOCYTE ESTERASE ,URINE NEGATIVE (Neg); NITRITES, URINE NEGATIVE (Neg); OCCULT BLOOD,URINE NEGATIVE (Neg); PH,URINE 7.5 (4.8-8.0); PROTEIN,URINE NEGATIVE (Neg); UROBILINOGEN,URINE 0.2 E.U/dL (0.2-1.0)
[2020-04-27] MEDS ORDERED: ASPI-611 PO (17:23)
[2020-04-27] MEDS ORDERED: CLOP75TA15 PO (17:23)
[2020-04-27] MEDS ORDERED: LOSA25TA96 PO (17:24)
[2020-04-27 17:26] LABS: UA COLLECTION TYPE STRAIGHT CATH
[2020-04-27 18:19] VITALS: BP 131/76
== END 2020-04-27 18:26 | disposition home or self-care (01) ==
LOC: ER 15:15
DX: K59.00 Constipation, unspecified (principal); I88.0 Nonspecific mesenteric lymphadenitis; K62.5 Hemorrhage of anus and rectum; Z88.8 Allergy status to other drugs, medicaments and biological substances; Z79.82 Long term (current) use of aspirin; Z79.899 Other long term (current) drug therapy; Z87.442 Personal history of urinary calculi; Z98.890 Other specified postprocedural states; Z87.440 Personal history of urinary (tract) infections
CPT/HCPCS: 36415; 71045; 74177; 80053; 81003; 83735; 84145; 84443; 84484; 85025; 85610; 85730; 86885; 86900; 86901; 96361; 96374; 99285; J2405; J7030; Q9967

== ENCOUNTER 2020-05-15 14:26 | Emergency (ER) | payer MEDICARE ==
[~2020-05-15] VITALS: Ht 154.9 cm; Wt 72.7 kg
[~2020-05-15 14:26] MED LIST changes: +ASPI-611 PO; -CIPR-202 PO; +LOSA25TA96 PO; -ONDA4TAB6 PO
--- NOTE | 2020-05-15 15:13 | NUR ---
ALEXANDRA REPORTS "SOME DISCOMFORT IN MY CHEST" 12 LEAD ORDERED, DR VILLALPANDO AWARE
[2020-05-15] MEDS ORDERED: nitroGLYCERIN 1gm ointment UD TP ONE (15:20)
[2020-05-15] MEDS ORDERED: nitroGLYCERIN 0.4mg/hour patch TD ONE (15:20)
[2020-05-15 15:25] LABS: BASOPHILS % (AUTO) 0.7 % (0-1); EOSINOPHILS % (AUTO) 0.3 % (0-6); HEMATOCRIT 34.1 % (35.0-45.0); HEMOGLOBIN 11.3 g/dl (12.0-16.0); LYMPHOCYTES # (AUTO) 0.9 X10'3 (1.1-4.8); MONOCYTES # (AUTO) 0.4 X10'3 (0-0.9); MONOCYTES % (AUTO) 6.1 % (2-12); NEUTROPHILS # (AUTO) 5.1 X10'3 (1.8-7.7); NEUTROPHILS % (AUTO) 78.9 % (42-75); PLATELET COUNT 309 X10'3 (140-440); RED BLOOD COUNT 3.75 X10'6 (4.20-5.60); RED CELL DISTRIBUTION WIDTH 14.6 % (11.5-14.5); WHITE BLOOD COUNT 6.4 X10'3 (4.5-11.0)
[2020-05-15 15:57] LABS: ALANINE AMINOTRANSFERASE 22 U/L (12-78); ALBUMIN 3.9 G/DL (3.4-5.0); ALBUMIN/GLOBULIN RATIO 1.1 (1.1-1.5); ALKALINE PHOSPHATASE 105 IU/L (46-116); ANION GAP 11 (8-16); ASPARTATE AMINO TRANSFERASE 16 U/L (10-37); BILIRUBIN,TOTAL 0.6 MG/DL (0.1-1.0); BLOOD UREA NITROGEN 10 MG/DL (7-18); BUN/CREATININE RATIO 10.6 (6.6-38.0); CALCIUM 9.6 MG/DL (8.5-10.1); CHLORIDE 100 MMOL/L (99-107); CREATININE 0.94 MG/DL (0.40-0.90); GLUCOSE 127 MG/DL (70-104); LIPASE 108 U/L (73-393); SODIUM 136 MMOL/L (135-145); TOTAL CARBON DIOXIDE 24.7 MMOL/L (24-32); TOTAL PROTEIN 7.6 G/DL (6.4-8.2); TROPONIN I < 0.04 NG/ML (0.0-0.05); eGFR 57 ML/MIN
[2020-05-15 16:08] LABS: CLARITY,URINE SLIGHTLY CLOUDY (Clear); COLOR,URINE YELLOW (Yellow); GLUCOSE, URINE NEGATIVE (Neg); KETONES,URINE NEGATIVE (Neg); LEUKOCYTE ESTERASE ,URINE NEGATIVE (Neg); NITRITES, URINE NEGATIVE (Neg); OCCULT BLOOD,URINE NEGATIVE (Neg); PROTEIN,URINE NEGATIVE (Neg); UROBILINOGEN,URINE 0.2 E.U/dL (0.2-1.0)
[2020-05-15 16:13] LABS: UA COLLECTION TYPE STRAIGHT CATH
[2020-05-15 16:18] LABS: BACTERIA,URINE NONE SEEN /HPF (Neg); MUCUS STRANDS NONE SEEN /LPF (Neg); RBC,URINE 0-2 /HPF (0-2); SQUAMOUS EPITHELIAL CELL,UR NONE SEEN /LPF (FEW); WBC,URINE 0-4 /HPF (0-4)
--- NOTE | 2020-05-15 17:30 | NUR ---
PATIENT REPORTING VARIOUS COMPLAINTS WHICH HAVE BEEN DISCUSSED WITH THE MD. NUMBNESS FROM HER FEET TO HER GROIN, SHAKING ALL OVER: NO NOTICABLE TREMORS, UPPER CHEST PAIN THAT IS WORSE WITH A deep breathe PATIETN ADMITS TO RECENTLY HAVING CURTAINS CLOSED ALOT AND NOT GETTING OUT OF BED. WE DISCUSED THAT THE OPPOSITE IS WHAT SHE NEEDS TO DO IF HER ANXIETY IS GETTING WORSE AND MAYBE SHE COULD CONSIDER TALK THERAPY
[2020-05-15] MEDS ORDERED: bisacodyl 10mg suppository rectal RC ONE (18:35)
[2020-05-15] MEDS ORDERED: normal saline 1000ML IV soln IVB ONE (18:35)
--- NOTE | 2020-05-15 19:22 | NUR ---
no accucheck done, wrong patient, no meqls eaten either
--- NOTE | 2020-05-15 19:35 | NUR ---
DR VILLALPANDO AWARE THAT [facility] IS IN THE ROOM. DR WANTS TO DO A RECTAL EXAM AND THEN ADMINISTER DUCOLA
--- NOTE | 2020-05-15 19:55 | NUR ---
UPDATED DAUGHTER [phone] BRITTANY, MESSAGE LEFT: WILL BE HERE IN 35 MINUTES
--- NOTE | 2020-05-15 20:05 | NUR ---
DR VILLALPANDO AND I EDUCATED PATIENT ON HOW TO TAKE STOOL SOFTENERS, HOW AND WHEN TO TAKE MIRALAX: STOP IT FOR NOW DUE TO EMPTY RECTUM, INCREASE ACTIVTY, INCREASE FIBER AND FLUID. PATIENT ADVISED NOT TO LAY IN BED AND WATCH TV. PATIENT WILL FOLLOW UP WITH PMD DR MAIER. PATIENT WILL REMOVE NITRO PATCH IN THE AM
[2020-05-15 20:58] VITALS: BP 176/94
== END 2020-05-15 21:53 | disposition home or self-care (01) ==
LOC: ER 14:27
DX: R10.84 Generalized abdominal pain (principal); R53.1 Weakness; R07.89 Other chest pain; R11.0 Nausea; K59.00 Constipation, unspecified; Z86.73 Personal history of transient ischemic attack (TIA), and cerebral infarction without residual deficits; Z87.442 Personal history of urinary calculi; Z98.890 Other specified postprocedural states; Z88.5 Allergy status to narcotic agent; Z79.82 Long term (current) use of aspirin; Z79.899 Other long term (current) drug therapy
CPT/HCPCS: 36415; 74018; 80053; 81001; 83690; 84484; 85025; 93005; 99285; J7030

== ENCOUNTER 2021-08-05 12:34 | Emergency (ER) | payer MEDICARE, OTHER ==
[~2021-08-05] VITALS: Ht 152.4 cm; Wt 70.0 kg
[2021-08-05 12:59] VITALS: BP 114/86
[2021-08-05] MEDS ORDERED: ondansetron/PF 4mg/2ml inj IV ONE (13:20)
[2021-08-05 13:55] LABS: BASOPHILS % (AUTO) 0.7 % (0-1); EOSINOPHILS # (AUTO) 0.1 X10'3 (0-0.9); EOSINOPHILS % (AUTO) 1.4 % (0-6); HEMATOCRIT 36.8 % (35.0-45.0); HEMOGLOBIN 12.3 g/dl (12.0-16.0); LYMPHOCYTES # (AUTO) 0.8 X10'3 (1.1-4.8); LYMPHOCYTES % (AUTO) 18.9 % (21-51); MEAN CORPUSCULAR HEMOGLOBIN 31.8 PG (27.0-31.0); MEAN CORPUSCULAR HGB CONC 33.4 g/dL (33.0-36.5); MEAN CORPUSCULAR VOLUME 95.2 FL (78-98); MEAN PLATELET VOLUME 7.3 FL (7.4-10.4); MONOCYTES # (AUTO) 0.4 X10'3 (0-0.9); MONOCYTES % (AUTO) 8.3 % (2-12); NEUTROPHILS # (AUTO) 3.1 X10'3 (1.8-7.7); NEUTROPHILS % (AUTO) 70.7 % (42-75); PLATELET COUNT 242 X10'3 (140-440); RED BLOOD COUNT 3.87 X10'6 (4.20-5.60); RED CELL DISTRIBUTION WIDTH 13.3 % (11.5-14.5); WHITE BLOOD COUNT 4.4 X10'3 (4.5-11.0)
[2021-08-05 14:14] LABS: ALANINE AMINOTRANSFERASE 35 U/L (12-78); ALBUMIN 3.7 G/DL (3.4-5.0); ALKALINE PHOSPHATASE 110 IU/L (46-116); ANION GAP 11 (8-16); ASPARTATE AMINO TRANSFERASE 26 U/L (10-37); BILIRUBIN,TOTAL 0.7 MG/DL (0.1-1.0); BLOOD UREA NITROGEN 11 MG/DL (7-18); BUN/CREATININE RATIO 12.1 (6.6-38.0); CALCIUM 9.4 MG/DL (8.5-10.1); CHLORIDE 106 MMOL/L (99-107); CREATININE 0.91 MG/DL (0.40-0.90); GLUCOSE 131 MG/DL (70-104); POTASSIUM 4.2 MMOL/L (3.5-5.1); SODIUM 143 MMOL/L (135-145); TOTAL PROTEIN 7.3 G/DL (6.4-8.2); eGFR 59 ML/MIN
[2021-08-05] MEDS ORDERED: MAG355OR18 PO (15:56)
== END 2021-08-05 16:35 | disposition home or self-care (01) ==
LOC: ER 12:35
DX: K58.9 Irritable bowel syndrome, unspecified (principal); R10.13 Epigastric pain; Z87.442 Personal history of urinary calculi; Z88.5 Allergy status to narcotic agent; Z79.899 Other long term (current) drug therapy
CPT/HCPCS: 36415; 71045; 80053; 83880; 84484; 85025; 93005; 96374; 99285; J2405

== ENCOUNTER 2022-10-11 13:26 | Emergency (ER) | payer MEDICARE, OTHER ==
[~2022-10-11] VITALS: Ht 154.9 cm; Wt 80.0 kg
[2022-10-11 14:17] LABS: BASOPHILS # (AUTO) 0.1 X10'3 (0-0.2); EOSINOPHILS # (AUTO) 0.1 X10'3 (0-0.9); EOSINOPHILS % (AUTO) 1.6 % (0-6); HEMATOCRIT 32.5 % (35.0-45.0); LYMPHOCYTES # (AUTO) 1.3 X10'3 (1.1-4.8); LYMPHOCYTES % (AUTO) 25.2 % (21-51); MEAN CORPUSCULAR HEMOGLOBIN 33.5 PG (27.0-31.0); MEAN CORPUSCULAR HGB CONC 33.9 g/dL (33.0-36.5); MEAN CORPUSCULAR VOLUME 98.8 FL (78-98); MEAN PLATELET VOLUME 6.5 FL (7.4-10.4); MONOCYTES # (AUTO) 0.5 X10'3 (0-0.9); MONOCYTES % (AUTO) 9.9 % (2-12); NEUTROPHILS # (AUTO) 3.3 X10'3 (1.8-7.7); NEUTROPHILS % (AUTO) 62.3 % (42-75); PLATELET COUNT 226 X10'3 (140-440); RED BLOOD COUNT 3.29 X10'6 (4.20-5.60); RED CELL DISTRIBUTION WIDTH 14.2 % (11.5-14.5); WHITE BLOOD COUNT 5.3 X10'3 (4.5-11.0)
[2022-10-11 14:33] LABS: ALANINE AMINOTRANSFERASE 18 U/L (12-78); ALBUMIN 3.9 G/DL (3.4-5.0); ALBUMIN/GLOBULIN RATIO 0.8 (1.1-1.5); ALKALINE PHOSPHATASE 120 IU/L (46-116); ANION GAP 9 (8-16); ASPARTATE AMINO TRANSFERASE 19 U/L (10-37); BILIRUBIN,TOTAL 0.5 MG/DL (0.1-1.0); BLOOD UREA NITROGEN 32 MG/DL (7-18); BUN/CREATININE RATIO 17.8 (10.0-20.0); CALCIUM 10.4 MG/DL (8.5-10.1); CHLORIDE 101 MMOL/L (99-107); POTASSIUM 4.3 MMOL/L (3.5-5.1); SODIUM 138 MMOL/L (135-145); TOTAL CARBON DIOXIDE 28.2 MMOL/L (24-32); TOTAL PROTEIN 8.8 G/DL (6.4-8.2); eCRCL 18 ML/MIN; eGFR 27 ML/MIN
[2022-10-11 14:39] LABS: PRO BRAIN NATRIURETIC PEPTIDE 341 PG/ML (0-450)
[2022-10-11 14:41] LABS: GLUCOSE 87 MG/DL (70-104)
[2022-10-11 16:59] LABS: BASOPHILS % (AUTO) 0.8 % (0-1); EOSINOPHILS # (AUTO) 0.1 X10'3 (0-0.9); HEMATOCRIT 32.2 % (35.0-45.0); HEMOGLOBIN 10.8 g/dl (12.0-16.0); LYMPHOCYTES # (AUTO) 1.3 X10'3 (1.1-4.8); LYMPHOCYTES % (AUTO) 23.2 % (21-51); MEAN CORPUSCULAR HGB CONC 33.5 g/dL (33.0-36.5); MEAN CORPUSCULAR VOLUME 98.3 FL (78-98); MEAN PLATELET VOLUME 6.7 FL (7.4-10.4); MONOCYTES # (AUTO) 0.6 X10'3 (0-0.9); MONOCYTES % (AUTO) 9.7 % (2-12); NEUTROPHILS # (AUTO) 3.7 X10'3 (1.8-7.7); NEUTROPHILS % (AUTO) 64.3 % (42-75); PLATELET COUNT 219 X10'3 (140-440); RED BLOOD COUNT 3.28 X10'6 (4.20-5.60); RED CELL DISTRIBUTION WIDTH 14.2 % (11.5-14.5); WHITE BLOOD COUNT 5.7 X10'3 (4.5-11.0)
[2022-10-11 17:13] LABS: CREATINE KINASE 150 U/L (26-192); LIPASE 172 U/L (73-393)
[2022-10-11 17:55] VITALS: BP 146/81; PULSE 78; RESP 18; TEMP 98.7; O2SAT 96
--- NOTE | 2022-10-11 18:13 | NUR ---
Called and left a message for Pt's daughter per her request for a ride home at D/C home.
[2022-10-11] MEDS ORDERED: FURO-150 PO (18:34)
[2022-10-11] MEDS ORDERED: furosemide 20MG tablet PO ONE (18:40)
--- NOTE | 2022-10-11 18:40 | NUR ---
Second message left for daughter who will be taking patient home, per patient.
[2022-10-12] MEDS ORDERED: furosemide 40 MG/4 ML oral solution UD cup PO SCH (08:00)
== END 2022-10-11 19:03 | disposition home or self-care (01) ==
LOC: ER 13:27
DX: R79.89 Other specified abnormal findings of blood chemistry (principal); R60.0 Localized edema; E78.00 Pure hypercholesterolemia, unspecified; Z88.5 Allergy status to narcotic agent; Z79.899 Other long term (current) drug therapy
CPT/HCPCS: 36415; 71045; 80053; 82550; 83605; 83690; 83880; 84484; 85025; 93005; 99285

== ENCOUNTER 2023-01-31 10:40 | Emergency (ER) | payer MEDICARE, OTHER ==
[~2023-01-31] VITALS: Ht 152.4 cm; Wt 62.7 kg
[~2023-01-31 10:40] MED LIST changes: +FURO-150 PO; +LOSA-415 PO; -LOSA25TA96 PO
[2023-01-31 11:13] LABS: ALANINE AMINOTRANSFERASE 24 U/L (12-78); ALBUMIN 3.8 G/DL (3.4-5.0); ALBUMIN/GLOBULIN RATIO 0.6 (1.1-1.5); ALKALINE PHOSPHATASE 110 IU/L (46-116); ANION GAP 15 (8-16); ASPARTATE AMINO TRANSFERASE 33 U/L (10-37); BILIRUBIN,TOTAL 0.5 MG/DL (0.1-1.0); BLOOD UREA NITROGEN 25 MG/DL (7-18); BUN/CREATININE RATIO 12.1 (10.0-20.0); CALCIUM 10.4 MG/DL (8.5-10.1); CHLORIDE 99 MMOL/L (99-107); CREATININE 2.06 MG/DL (0.40-0.90); POTASSIUM 3.4 MMOL/L (3.5-5.1); SODIUM 138 MMOL/L (135-145); TOTAL CARBON DIOXIDE 24.3 MMOL/L (24-32); eCRCL 15 ML/MIN; eGFR 23 ML/MIN
[2023-01-31 11:21] LABS: PRO BRAIN NATRIURETIC PEPTIDE 288 PG/ML (0-450)
[2023-01-31 11:22] LABS: EOSINOPHILS # (AUTO) 0.1 X10'3 (0-0.9); EOSINOPHILS % (AUTO) 1.8 % (0-6); GLUCOSE 145 MG/DL (70-104); HEMATOCRIT 33.7 % (35.0-45.0); HEMOGLOBIN 11.4 g/dl (12.0-16.0); LYMPHOCYTES # (AUTO) 1.2 X10'3 (1.1-4.8); LYMPHOCYTES % (AUTO) 26.3 % (21-51); MEAN CORPUSCULAR HGB CONC 33.9 g/dL (33.0-36.5); MEAN CORPUSCULAR VOLUME 103.2 FL (78-98); MEAN PLATELET VOLUME 6.7 FL (7.4-10.4); MONOCYTES # (AUTO) 0.4 X10'3 (0-0.9); MONOCYTES % (AUTO) 8.3 % (2-12); NEUTROPHILS # (AUTO) 2.9 X10'3 (1.8-7.7); NEUTROPHILS % (AUTO) 62.6 % (42-75); PLATELET COUNT 223 X10'3 (140-440); RED BLOOD COUNT 3.26 X10'6 (4.20-5.60); RED CELL DISTRIBUTION WIDTH 14.3 % (11.5-14.5); WHITE BLOOD COUNT 4.6 X10'3 (4.5-11.0)
[2023-01-31 13:51] LABS: BILIRUBIN,URINE NEGATIVE (Neg); CLARITY,URINE CLOUDY (Clear); COLOR,URINE YELLOW (Yellow); GLUCOSE, URINE 500 mg/dl (Neg); KETONES,URINE NEGATIVE (Neg); LEUKOCYTE ESTERASE ,URINE SMALL (Neg); NITRITES, URINE NEGATIVE (Neg); OCCULT BLOOD,URINE TRACE-INTACT (Neg); PROTEIN,URINE TRACE mg/dl (Neg); UROBILINOGEN,URINE 0.2 E.U/dL (0.2-1.0)
[2023-01-31 14:01] LABS: MUCUS STRANDS FEW /LPF (Neg); SQUAMOUS EPITHELIAL CELL,UR MANY /LPF (FEW); UA COLLECTION TYPE CLN CATCH MIDSTREAM
[2023-01-31 14:02] LABS: WBC,URINE 20-30 /HPF (0-4)
[2023-01-31 14:03] LABS: BACTERIA,URINE 1+ /HPF (Neg); TRANSITIONAL EPI CELLS,URINE FEW /HPF; WBC CLUMPS,URINE FEW /HPF (NEGATIVE)
[2023-01-31] MEDS ORDERED: CEPH-585 PO (16:08)
[2023-01-31 16:34] VITALS: BP 130/70; PULSE 78; RESP 16; TEMP 97.9; O2SAT 99
== END 2023-01-31 16:39 | disposition home or self-care (01) ==
LOC: ER 10:41
DX: N39.0 Urinary tract infection, site not specified (principal); E86.0 Dehydration
CPT/HCPCS: 36415; 80053; 81001; 83880; 84484; 85025; 93005; 99284

== ENCOUNTER 2023-02-10 13:24 | Emergency (ER) | payer MEDICARE, OTHER ==
[~2023-02-10] VITALS: Ht 152.4 cm; Wt 62.7 kg
[~2023-02-10 13:24] MED LIST changes: +CEPH-585 PO
[2023-02-10 15:11] LABS: BASOPHILS % (AUTO) 0.7 % (0-1); EOSINOPHILS # (AUTO) 0.1 X10'3 (0-0.9); EOSINOPHILS % (AUTO) 1.1 % (0-6); HEMATOCRIT 31.5 % (35.0-45.0); HEMOGLOBIN 10.7 g/dl (12.0-16.0); LYMPHOCYTES # (AUTO) 1.1 X10'3 (1.1-4.8); LYMPHOCYTES % (AUTO) 23.8 % (21-51); MEAN CORPUSCULAR HEMOGLOBIN 34.8 PG (27.0-31.0); MEAN CORPUSCULAR HGB CONC 34.1 g/dL (33.0-36.5); MEAN CORPUSCULAR VOLUME 101.9 FL (78-98); MEAN PLATELET VOLUME 6.6 FL (7.4-10.4); MONOCYTES # (AUTO) 0.4 X10'3 (0-0.9); MONOCYTES % (AUTO) 7.7 % (2-12); NEUTROPHILS # (AUTO) 3.2 X10'3 (1.8-7.7); NEUTROPHILS % (AUTO) 66.7 % (42-75); PLATELET COUNT 212 X10'3 (140-440); RED BLOOD COUNT 3.09 X10'6 (4.20-5.60); RED CELL DISTRIBUTION WIDTH 13.7 % (11.5-14.5); WHITE BLOOD COUNT 4.7 X10'3 (4.5-11.0)
[2023-02-10 15:36] LABS: ALANINE AMINOTRANSFERASE 32 U/L (12-78); ALBUMIN 3.6 G/DL (3.4-5.0); ALBUMIN/GLOBULIN RATIO 0.6 (1.1-1.5); ALKALINE PHOSPHATASE 102 IU/L (46-116); ANION GAP 11 (8-16); ASPARTATE AMINO TRANSFERASE 25 U/L (10-37); BILIRUBIN,TOTAL 0.3 MG/DL (0.1-1.0); BLOOD UREA NITROGEN 16 MG/DL (7-18); BUN/CREATININE RATIO 11.3 (10.0-20.0); CALCIUM 10.8 MG/DL (8.5-10.1); CHLORIDE 96 MMOL/L (99-107); CREATININE 1.42 MG/DL (0.40-0.90); POTASSIUM 3.8 MMOL/L (3.5-5.1); PRO BRAIN NATRIURETIC PEPTIDE 224 PG/ML (0-450); SODIUM 132 MMOL/L (135-145); TOTAL CARBON DIOXIDE 25.3 MMOL/L (24-32); eCRCL 21 ML/MIN; eGFR 35 ML/MIN
[2023-02-10 15:39] LABS: GLUCOSE 91 MG/DL (70-104)
[2023-02-10 21:09] LABS: ETHANOL < 10 MG/DL (<10)
[2023-02-10 21:41] LABS: BILIRUBIN,URINE NEGATIVE (Neg); CLARITY,URINE CLEAR (Clear); COLOR,URINE STRAW (Yellow); GLUCOSE, URINE NEGATIVE (Neg); KETONES,URINE NEGATIVE (Neg); LEUKOCYTE ESTERASE ,URINE NEGATIVE (Neg); NITRITES, URINE NEGATIVE (Neg); OCCULT BLOOD,URINE TRACE-INTACT (Neg); PH,URINE 7.5 (4.8-8.0); PROTEIN,URINE NEGATIVE (Neg); UROBILINOGEN,URINE 0.2 E.U/dL (0.2-1.0)
[2023-02-10 21:42] LABS: UA COLLECTION TYPE CLN CATCH MIDSTREAM
[2023-02-10 21:48] LABS: BACTERIA,URINE NONE SEEN /HPF (Neg); MUCUS STRANDS FEW /LPF (Neg); RBC,URINE 0-2 /HPF (0-2); SQUAMOUS EPITHELIAL CELL,UR FEW /LPF (FEW); WBC,URINE 0-4 /HPF (0-4)
[2023-02-10 22:40] LABS: THYROID STIMULATING HORMONE 0.94 ulU/ml (0.34-4.50)
[2023-02-10] MEDS ORDERED: acetaminophen 325mg tablet PO ONE (23:05)
[2023-02-11] MEDS ORDERED: ALPRAZolam 0.5mg tablet PO ONE (00:10)
[2023-02-11] MEDS ORDERED: traZODone 50mg tablet PO ONE ×2 (00:10→02:25)
[2023-02-11] MEDS ORDERED: CLOP-32 PO (00:21)
[2023-02-11] MEDS ORDERED: VENL150C4 PO ×2 (00:33→00:37)
[2023-02-11] MEDS ORDERED: DONE10TA19 PO (00:42)
[2023-02-11] MEDS ORDERED: ASPI-529 (00:47)
[2023-02-11] MEDS ORDERED: MULT-1085 PO (00:59)
[2023-02-11] MEDS ORDERED: traZODone 150mg tablet PO PRN (01:10)
[2023-02-11 05:16] VITALS: BP 119/56; PULSE 89; O2SAT 97
[2023-02-11 07:27] VITALS: RESP 16
[2023-02-11 07:39] LABS: URINE AMPHETAMINE SCREEN NEGATIVE (Neg); URINE BARBITUATE SCREEN NEGATIVE (Neg); URINE BENZODIAZEPINES SCREEN POSITIVE (Neg); URINE CANNABINOID SCREEN NEGATIVE (Neg); URINE COCAINE SCREEN NEGATIVE (Neg); URINE METHADONE SCREEN NEGATIVE (Neg); URINE OPIATE SCREEN NEGATIVE (Neg); URINE PHENCYCLIDINE SCREEN NEGATIVE (Neg)
[2023-02-11] MEDS ORDERED: aspirin 81mg, enteric-coated 1 TAB TABLET.DR PO SCH (08:00)
[2023-02-11] MEDS ORDERED: clopidogrel 75mg tablet PO SCH (08:00)
[2023-02-11] MEDS ORDERED: acetaminophen 325mg tablet PO ONE (13:05)
[2023-02-11] MEDS ORDERED: LORazepam 0.5 MG tablet PO ONE (14:10)
[2023-02-11 17:24] VITALS: TEMP 98.5
[2023-02-11] MEDS ORDERED: ALPRAZolam 0.5mg tablet PO SCH (21:00)
[2023-02-11] MEDS ORDERED: venlafaxine XR 75mg capsule (Q24H) PO SCH (21:00)
[2023-02-11] MEDS ORDERED: donepezil 5mg tablet PO SCH (21:00)
== END 2023-02-11 16:26 | disposition home or self-care (01) ==
LOC: ER 13:24
DX: F32.A Depression, unspecified (principal); Z20.822 Contact with and (suspected) exposure to COVID-19; N64.4 Mastodynia; Z88.8 Allergy status to other drugs, medicaments and biological substances; Z79.899 Other long term (current) drug therapy; Z79.82 Long term (current) use of aspirin
CPT/HCPCS: 36415; 71045; 80053; 80305; 80320; 81001; 83880; 84443; 84484; 85025; 87811; 93005; 99285

== ENCOUNTER 2023-03-19 12:58 | Emergency (ER) | payer MEDICARE, OTHER ==
[~2023-03-19] VITALS: Ht 152.4 cm; Wt 66.0 kg
[~2023-03-19 12:58] MED LIST changes: -ATOR20TA PO; +ATOR40TA7 PO; -CEPH-585 PO; +DONE10TA19 PO; -FURO-150 PO; +HYDR-3965 PO; -LOSA-415 PO; +MULT-1085 PO; -RABE20TA18 PO; +VENL150C5 PO
[2023-03-19 13:06] VITALS: BP 155/61; PULSE 76; RESP 16; TEMP 98.6; O2SAT 97
[2023-03-19 13:46] LABS: BASOPHILS % (AUTO) 0.7 % (0-1); EOSINOPHILS # (AUTO) 0.1 X10'3 (0-0.9); EOSINOPHILS % (AUTO) 1.9 % (0-6); HEMATOCRIT 26.7 % (35.0-45.0); HEMOGLOBIN 9.1 g/dl (12.0-16.0); LYMPHOCYTES # (AUTO) 0.9 X10'3 (1.1-4.8); LYMPHOCYTES % (AUTO) 20.8 % (21-51); MEAN CORPUSCULAR HEMOGLOBIN 35.8 PG (27.0-31.0); MEAN CORPUSCULAR HGB CONC 34.1 g/dL (33.0-36.5); MEAN CORPUSCULAR VOLUME 104.9 FL (78-98); MEAN PLATELET VOLUME 6.7 FL (7.4-10.4); MONOCYTES # (AUTO) 0.5 X10'3 (0-0.9); MONOCYTES % (AUTO) 11.9 % (2-12); NEUTROPHILS # (AUTO) 2.9 X10'3 (1.8-7.7); NEUTROPHILS % (AUTO) 64.7 % (42-75); PLATELET COUNT 210 X10'3 (140-440); RED BLOOD COUNT 2.55 X10'6 (4.20-5.60); RED CELL DISTRIBUTION WIDTH 15.2 % (11.5-14.5); WHITE BLOOD COUNT 4.6 X10'3 (4.5-11.0)
[2023-03-19 13:56] LABS: ALANINE AMINOTRANSFERASE 35 U/L (12-78); ALBUMIN 3.5 G/DL (3.4-5.0); ALBUMIN/GLOBULIN RATIO 0.6 (1.1-1.5); ALKALINE PHOSPHATASE 90 IU/L (46-116); ANION GAP 11 (8-16); ASPARTATE AMINO TRANSFERASE 30 U/L (10-37); BILIRUBIN,TOTAL 0.4 MG/DL (0.1-1.0); BLOOD UREA NITROGEN 28 MG/DL (7-18); BUN/CREATININE RATIO 17.6 (10.0-20.0); CALCIUM 10.2 MG/DL (8.5-10.1); CHLORIDE 98 MMOL/L (99-107); CREATININE 1.59 MG/DL (0.40-0.90); POTASSIUM 3.7 MMOL/L (3.5-5.1); SODIUM 137 MMOL/L (135-145); TOTAL CARBON DIOXIDE 28.4 MMOL/L (24-32); TOTAL PROTEIN 9.7 G/DL (6.4-8.2); eCRCL 19 ML/MIN; eGFR 31 ML/MIN
[2023-03-19 13:59] LABS: GLUCOSE 103 MG/DL (70-104)
[2023-03-19] MEDS ORDERED: bisacodyl 5mg tablet.DR PO PRN (14:30)
[2023-03-19] MEDS ORDERED: magnesium hydroxide 30ml (MOM) UD suspension PO ONE (14:30)
[2023-03-19] MEDS ORDERED: DOCU-148 PO (15:16)
== END 2023-03-19 15:38 | disposition home or self-care (01) ==
LOC: ER 12:58
DX: K59.00 Constipation, unspecified (principal); E78.00 Pure hypercholesterolemia, unspecified; Z86.73 Personal history of transient ischemic attack (TIA), and cerebral infarction without residual deficits; Z87.442 Personal history of urinary calculi
CPT/HCPCS: 36415; 74018; 80053; 85025; 99284

== ENCOUNTER 2023-03-27 23:36 | Emergency (ER) | payer MEDICARE, OTHER ==
[~2023-03-27] VITALS: Ht 152.4 cm; Wt 66.0 kg
[~2023-03-27 23:36] MED LIST changes: +ATOR-411 PO; -ATOR40TA7 PO; +DOCU-148 PO
[2023-03-28 01:48] LABS: BASOPHILS % (AUTO) 0.8 % (0-1); EOSINOPHILS % (AUTO) 0.4 % (0-6); HEMOGLOBIN 9.7 g/dl (12.0-16.0); LYMPHOCYTES # (AUTO) 1.4 X10'3 (1.1-4.8); LYMPHOCYTES % (AUTO) 31.3 % (21-51); MEAN CORPUSCULAR HEMOGLOBIN 35.3 PG (27.0-31.0); MEAN CORPUSCULAR HGB CONC 34.6 g/dL (33.0-36.5); MEAN PLATELET VOLUME 6.2 FL (7.4-10.4); MONOCYTES # (AUTO) 0.6 X10'3 (0-0.9); MONOCYTES % (AUTO) 12.5 % (2-12); NEUTROPHILS # (AUTO) 2.5 X10'3 (1.8-7.7); PLATELET COUNT 251 X10'3 (140-440); RED BLOOD COUNT 2.74 X10'6 (4.20-5.60); RED CELL DISTRIBUTION WIDTH 14.6 % (11.5-14.5); WHITE BLOOD COUNT 4.6 X10'3 (4.5-11.0)
[2023-03-28 02:16] LABS: ALBUMIN 3.6 G/DL (3.4-5.0); ANION GAP 17 (8-16); BLOOD UREA NITROGEN 34 MG/DL (7-18); BUN/CREATININE RATIO 18.7 (10.0-20.0); CALCIUM 11.6 MG/DL (8.5-10.1); CHLORIDE 95 MMOL/L (99-107); CREATININE 1.82 MG/DL (0.40-0.90); POTASSIUM 3.7 MMOL/L (3.5-5.1); PRO BRAIN NATRIURETIC PEPTIDE 552 PG/ML (0-450); SODIUM 133 MMOL/L (135-145); TOTAL CARBON DIOXIDE 21.4 MMOL/L (24-32); eCRCL 17 ML/MIN; eGFR 26 ML/MIN
[2023-03-28 02:27] LABS: GLUCOSE 117 MG/DL (70-104)
[2023-03-28] MEDS ORDERED: HYDR-3965 PO (02:30)
[2023-03-28] MEDS ORDERED: DOCU-171 PO (02:30)
[2023-03-28 02:54] VITALS: BP 144/77; PULSE 79; RESP 16; TEMP 98.3; O2SAT 95
== END 2023-03-28 03:06 | disposition home or self-care (01) ==
LOC: ER 23:37
DX: N64.4 Mastodynia (principal); K59.00 Constipation, unspecified; E78.00 Pure hypercholesterolemia, unspecified; Z88.5 Allergy status to narcotic agent; Z79.899 Other long term (current) drug therapy; Z79.82 Long term (current) use of aspirin
CPT/HCPCS: 36415; 71045; 80048; 83880; 84484; 85025; 93005; 99285